=== PATIENT | female | born 1960 | race Caucasian/White ===

== ENCOUNTER 2017-02-06 04:01 | Emergency (ER) ==
[2017-02-06 04:19] VITALS: BMI 33.3
[2017-02-06] MEDS ORDERED: SODIUM CHLORIDE 1,000 ML IV STA (04:25)
[2017-02-06] MEDS ORDERED: XOPENEX 1.25 MG NEB STA (04:26)
[2017-02-06] MEDS ORDERED: DUONEB NEB STA (04:26)
--- NOTE | 2017-02-06 05:39 | CT ---
EXAM: CT of the chest without contrast. HISTORY: Cough. PROCEDURE: Contiguous axial CT images of the chest without contrast with coronal and sagittal reform ats. FINDINGS: The heart is within normal limits in size. The thoracic aorta is within normal limits in d iameter. There is an enlarged pretracheal lymph node measuring up to 1 cm in short axis. There is min imal right middle lobe atelectasis and/or pneumonia. There are degenerative changes in the spine. The re is a 3.4 cm left benign adrenal adenoma. The right adrenal gland and visualized portion of the li muna are normal in appearance. Impression: Minimal right middle lobe atelectasis and/or pneumonia. Enlarged pretracheal lymph node as described. Recommend follow-up CT in 3 months to confirm stabilit y.
[2017-02-06] MEDS ORDERED: LEVAQUIN 750 MG in PREMIX 150 ML D5W 1 BAG IV STA (05:45)
--- NOTE | 2017-02-06 05:47 | ED.PDOC ---
General ED Provider: Dr. NENITA BIRMINGHAM-ER Chief Complaint: Respiratory Complaint Stated Complaint: im sob and coughing Time Seen by Physician: 04:15 Mode of Arrival: Walk-In Information Source: Patient Exam Limitations: No limitations Primary Care Provider: NENITA BIRMINGHAM Nursing and Triage Documentation Reviewed and Agree: Yes Reviewed sepsis parameters & appropriate labs ordered?: Yes System Inflammatory Response Syndrome: Not Applicable Sepsis Protocol: For patient's 13 years and over: Temp is 96.8 and below OR 101 and greater Pulse >90 BPM Resp >20/minute Acutely Altered Mental Status Are patient's symptoms suggestive of a new infection, such as: -Pneumonia -Skin, Soft Tissue -Endocarditis -UTI -Bone, Joint Infection -Implantable Device -Acute Abdominal Infection -Wound Infection -Meningitis -Blood Stream Catheter Infection -Unknown Respiratory Complaint Exam - Respiratory Complaint/Exam Onset/Duration: 4 days Symptoms Are: Still present Timing: Constant Initial Severity: Mild Current Severity: Moderate Location: Chest Character: Reports: Non-productive cough Aggravating: Reports: URI, Passive smoke exposure Alleviating: Reports: Bronchodilators Associated Signs and Symptoms: Reports: Dyspnea, Wheezing, URI. Denies: Rapid breathing, Fever, Chills, Chest pain, Pleuritic chest pain, Hemoptysis, Dizziness, Calf pain, Calf swelling, Edema, Nasal congestion, Hoarseness, Sinus discomfort, Vomiting, Sore throat, Weight loss, Decreased oral intake, Increased thirst, Increased appetite, Increased urination History of Healthcare-Acquired Pneumonia: No Home Oxygen Use: No Recent Stress Test: No Recent Echo/LV Function: No Current Antibiotic Use: Yes Current Asthma Medication Use: No Respiratory Distress: None Inadequate Respiratory Effort: No Dysphagia Present: No Stridor Present: No JVD Present: No Accessory Muscle Use: No Retractions: Not Present Diminished Breath Sounds: No Sinus Tenderness: None Grunting Respirations: No Kussmaul Respirations: No Differential Diagnoses: Pneumonia, Bronchitis, Influenza Non-Traumatic Chest Pain Syncope: EKG Performed Review of Systems - Review Of Systems Constitutional: Reports: No symptoms Eyes: Reports: No symptoms Ears, Nose, Mouth, Throat: Reports: No symptoms Respiratory: Reports: Cough, Short of air Cardiac: Reports: No symptoms GI: Reports: No symptoms : Reports: No symptoms Musculoskeletal: Reports: No symptoms Skin: Reports: No symptoms Neurological: Reports: No symptoms Endocrine: Reports: No symptoms Hematologic/Lymphatic: Reports: No symptoms All Other Systems: Reviewed and Negative Past Medical History - Past Medical History Previously Healthy: Yes Endocrine: Reports: Unknown Cardiovascular: Reports: Unknown Respiratory: Reports: Unknown Hematological: Reports: Unknown Gastrointestinal: Reports: Other (iverticulosis) Genitourinary: Reports: Unknown Neuro/Psych: Reports: Unknown Musculoskeletal: Reports: Unknown Cancer: Reports: Unknown Last Menstrual Period: PT HAS HAD A HYSTERECTOMY - Surgical History General Surgical History: Reports: Hysterectomy (hysterectomy at 29 yrs oldd) - Family History Family History: Reports: Unknown - Social History Smoking Status: Current every day smoker, Heavy tobacco smoker Hx Substance Use: No Alcohol Screening: Occasionally Lives: With family - Immunizations Tetanus Shot up to Date: No Physical Exam - Physical Exam Appearance: Well-appearing, No pain distress, Well-nourished Eyes: MADINA, EOMI, Conjunctiva clear ENT: Ears normal, Nose normal, Oropharynx normal Neck: Supple Respiratory: Crackles, Rhonchi Cardiovascular: RRR GI/: Soft Musculoskeletal: Normal strength, ROM intact, No edema, No calf tenderness Skin: Warm, Dry, Normal color Neurological: Sensation intact, Motor intact, Reflexes intact, Cranial nerves intact, Alert, Oriented Psychiatric: Affect appropriate, Mood appropriate Interpretation - Radiology Interpretation Radiology Interpretation By: Radiologist Radiology Results: Positive Exam Interpreted: CT Scan - EKG Interpretation Time of EKG #1: 05:50 Rate: Normal Rhythm: Sinus Ectopy: None [place]: NL ST Segment: Normal Critical Care Note - Critical Care Note Total Time (mins): 0 Course - Course Hematology/Chemistry: 02/06/17 04:34 02/06/17 04:34 Orders, Labs, Meds: Lab Review 02/06/17 02/06/17 02/06/17 04:20 04:24 04:34 WBC 16.56 H RBC 5.19 Hgb 16.4 H Hct 48.3 H MCV 93.1 MCH 31.6 H MCHC 34.0 RDW Coeff of Sybil 12.4 Plt Count 324 Immature Gran % (Auto) 0.6 Neut % (Auto) 45.7 Lymph % (Auto) 42.9 [place] % (Auto) 8.6 Eos % (Auto) 2.0 Baso % (Auto) 0.2 Immature Gran # (Auto) 0.1 Neut # 7.6 H Lymph # 7.1 H Sweet [place] # 1.4 Eos # 0.3 Baso # 0.0 Puncture Site Rrad O2 Saturation 93.0 L ABG pH 7.426 ABG pCO2 38.0 ABG pO2 66.0 L ABG HCO3 25 ABG Total CO2 26 ABG Base Excess 1 Matt Test + FiO2 % 21.0 Sodium Potassium Chloride Carbon Dioxide Anion Gap BUN Creatinine Estimated GFR (MDRD) BUN/Creatinine Ratio Glucose Calcium Total Bilirubin AST ALT Alkaline Phosphatase Total Protein Albumin Globulin Albumin/Globulin Ratio Influenza A (Rapid) Negative by naat Influenza B (Rapid) Negative by naat 02/06/17 04:34 WBC RBC Hgb Hct MCV MCH MCHC RDW Coeff of Sybil Plt Count Immature Gran % (Auto) Neut % (Auto) Lymph % (Auto) [place] % (Auto) Eos % (Auto) Baso % (Auto) Immature Gran # (Auto) Neut # Lymph # [place] # Eos # Baso # Puncture Site O2 Saturation ABG pH ABG pCO2 ABG pO2 ABG HCO3 ABG Total CO2 ABG Base Excess Matt Test FiO2 % Sodium 139 Potassium 3.9 Chloride 103 Carbon Dioxide 22 Anion Gap 17.9 BUN 14 Creatinine 0.69 Estimated GFR (MDRD) 88.00 BUN/Creatinine Ratio 20.28 Glucose 158 H Calcium 9.2 Total Bilirubin < 0.3 AST 22 ALT 40 Alkaline Phosphatase 86 Total Protein 7.4 Albumin 3.8 Globulin 3.6 Albumin/Globulin Ratio 1.06 Influenza A (Rapid) Influenza B (Rapid) Orders Category Date Time Status ABG DRAW REQUEST Stat CARDIO 02/06/17 04:24 Ordered EKG-(ED ONLY) Stat CARDIO 02/06/17 04:24 Ordered NEBULIZER TREATMENT Stat CARDIO 02/06/17 04:26 Ordered ED IV/MEDIPORT/POWERPORT .ONCE EMERGENCY 02/06/17 04:25 Active ABG Stat LAB 02/06/17 04:24 Completed BLOOD CULTURE (ED ONLY) Stat LAB 02/06/17 04:34 Received CBC W/ AUTO DIFF Stat LAB 02/06/17 04:34 Completed COMPREHENSIVE METABOLIC PANEL Stat LAB 02/06/17 04:34 Completed D-DIMER Stat LAB 02/06/17 Ordered MOLECULAR GROUP A STREP Stat LAB 02/06/17 04:20 Results RAPID FLU A/B Stat LAB 02/06/17 04:20 Completed RAPID STREP SCREEN [STREP SCREEN] Stat LAB 02/06/17 04:20 Results 0.9 % Sodium Chloride [Saline Flush] MEDS 02/06/17 04:25 Ordered 1 syr IVF PRN PRN Ipratropium/Albuterol Neb [Duoneb] MEDS 02/06/17 04:26 Discontinued 1 vial NEB ONCE STA Levalbuterol HCl [Xopenex 1.25 mg] MEDS 02/06/17 04:26 Discontinued 1 vial NEB ONCE STA Levofloxacin/D5w [Levaquin] 750 mg MEDS 02/06/17 05:45 Active Premix 150 ml D5w 1 bag IV ONCE Sodium Chloride 0.9% [Sodium Chloride] 1,000 ml MEDS 02/06/17 04:25 Active IV 100 mls/hr CT CHEST W/O CONTRAST Stat RADS 02/06/17 04:25 Completed Medications Generic Name Dose Route Start Last Admin Trade Name Freq PRN Reason Stop Dose Admin Sodium Chloride 1,000 mls @ 100 mls/hr 02/06/17 04:25 02/06/17 05:22 Sodium Chloride IV 02/06/17 14:24 100 mls/hr .Q10H STA Administration Levofloxacin/Dextrose 750 mg/ 150 mls @ 100 mls/hr 02/06/17 05:45 Dextrose IV 02/06/17 07:14 ONCE STA Sodium Chloride 1 syr 02/06/17 04:25 02/06/17 05:22 Saline Flush IVF 1 syr PRN PRN Administration To flush IV Discontinued Medications Generic Name Dose Route Start Last Admin Trade Name Freq PRN Reason Stop Dose Admin Albuterol/Ipratropium 1 vial 02/06/17 04:26 02/06/17 04:45 Duoneb NEB 02/06/17 04:27 1 vial ONCE STA Administration Levalbuterol HCl 1 vial 02/06/17 04:26 02/06/17 04:33 Xopenex 1.25 Mg NEB 02/06/17 04:27 1 vial ONCE STA Administration Vital Signs: Temp Pulse Resp BP Pulse Ox 02/06/17 04:01 98.3 F 80 28 H 175/83 H 94 L Departure - Departure Time of Disposition: 05:50 Disposition: ADMITTED INPATIENT Discharge Problem: Acute respiratory failure Qualifiers: Respiratory failure complication: hypoxia Qualified Code(s): J96.01 - Acute respiratory failure with hypoxia Pneumonia Qualifiers: Pneumonia type: due to unspecified organism Laterality: unspecified laterality Lung location: unspecified part of lung Qualified Code(s): J18.9 - Pneumonia, unspecified organism Instructions: Pneumonitis (ED) Condition: Good Pt referred to PMD for follow-up: Yes Allergies/Adverse Reactions: Allergies Penicillins Adverse Reaction (Verified 02/06/17 04:14) Home Medications: Ambulatory Orders Aspirin/Calcium Carbonate/Mag [Aspirin Buffered 325 mg Tab] 325 mg PO DAILY Estradiol [Estrace] 0.5 mg PO EVERY OTHER DAY 12/08/15 Psyllium Seed [Metamucil] 1 packet PO BID 12/08/15 Disposition Discussed With: Patient, Other (employer here)
[2017-02-06] MEDS ORDERED: LEVAQUIN 150 ML IV ONE (05:49)
[2017-02-06] MEDS: DUONEB NEB SCH ×2 (06:34→11:13)
[2017-02-06 07:32] VITALS: BP 141/58; TEMP 98.1
[2017-02-06] MEDS ORDERED: PREDNISONE PO SCH (08:00)
[2017-02-06] MEDS ORDERED: ASPIRIN EC PO SCH (08:00)
[2017-02-06] MEDS ORDERED: XOPENEX 0.63 MG NEB SCH (09:00)
[2017-02-06] MEDS ORDERED: LOVENOX SUBCUT SCH (09:00)
[2017-02-06] MEDS ORDERED: LEVAQUIN 500 MG in PREMIX 100 ML D5W 1 BAG IV SCH (09:00)
[2017-02-06] MEDS ORDERED: METAMUCIL PO SCH (09:00)
[2017-02-06] MEDS ORDERED: ESTRADIOL 0.5 MG PO SCH (09:00)
[2017-02-07] MEDS ORDERED: ESTRADIOL PO SCH (09:00)
== END 2017-02-06 14:26 | disposition left against medical advice (07) ==
LOC: ED 04:01
DX: J18.9 Pneumonia, unspecified organism (principal)
CPT/HCPCS: 36415; 80053; 82803; 85025; 87040; 87502; 87651; 87880; 93005; 93010; 94640; 96361; 96365; 96372; 99284

== ENCOUNTER 2018-09-26 00:44 | Emergency (ER) ==
[2018-09-26 00:44] VITALS: BMI 31.4
[2018-09-26 00:52] VITALS: BP 147/80; TEMP 98.2
[2018-09-26] MEDS ORDERED: EPINEPHRINE 1 MG/ML AMP IM STA (00:52)
[2018-09-26] MEDS ORDERED: DECADRON 4 MG/ML SDV ONE (00:52)
[2018-09-26] MEDS ORDERED: EPINEPHRINE 1 MG/ML AMP ONE (00:52)
[2018-09-26] MEDS ORDERED: DECADRON 4 MG/ML SDV IM STA (00:52)
[2018-09-26] MEDS ORDERED: ZANTAC PO STA (00:53)
[2018-09-26] MEDS ORDERED: CLARITIN PO STA (00:53)
[2018-09-26] MEDS ORDERED: BENADRYL IM STA (00:55)
--- NOTE | 2018-09-26 00:56 | ED.PDOC ---
General ED Provider: Dr. HUBERT LIMA Chief Complaint: Allergic Reaction Stated Complaint: Patient states that she has been on antibiotics for the past few days for Diverticulitis. Today she developed hives on back, arms, stomach yesterday. and Tongue swelling thought her throat was swelling too. Time Seen by Physician: 00:50 Mode of Arrival: Walk-In Information Source: Patient Primary Care Provider: NENITA BIRMINGHAM Nursing and Triage Documentation Reviewed and Agree: Yes Does patient meet sepsis criteria?: No System Inflammatory Response Syndrome: Not Applicable Sepsis Protocol: For patient's 13 years and over: Temp is 96.8 and below OR 101 and greater Pulse >90 BPM Resp >20/minute Acutely Altered Mental Status Are patient's symptoms suggestive of a new infection, such as: -Pneumonia -Skin, Soft Tissue -Endocarditis -UTI -Bone, Joint Infection -Implantable Device -Acute Abdominal Infection -Wound Infection -Meningitis -Blood Stream Catheter Infection -Unknown Environmental Complaint Exam - Allergic Reaction Complaint/Exam Onset/Duration: just proir to arrival Symptoms Are: Still present Timing: Constant Initial Severity: Mild Current Severity: Moderate Character: Present: Swelling (of tounge ) Associated Signs and Symptoms: Reports: Throat tightening, Throat swelling Possible Reaction To: Reports: Medication Diphenhydramine Prior to Arrival: Yes (yesterday ) Epinephrine Auto Injector Prior to Arrival: No Findings: Present: Oropharyngeal edema, Angioedema, Urticarial rash Review of Systems - Review Of Systems Constitutional: Reports: Loss of appetite Eyes: Reports: No symptoms Ears, Nose, Mouth, Throat: Reports: Throat swelling (and tongue swelling ) Respiratory: Reports: No symptoms Cardiac: Reports: No symptoms GI: Reports: No symptoms : Reports: No symptoms Neurological: Reports: Anxiety All Other Systems: Reviewed and Negative Past Medical History - Past Medical History Previously Healthy: Yes Endocrine: Reports: None Cardiovascular: Reports: None Respiratory: Reports: None Hematological: Reports: None Gastrointestinal: Reports: Diverticulitis, Other (iverticulosis) Genitourinary: Reports: None Neuro/Psych: Reports: None Musculoskeletal: Reports: None Cancer: Reports: None Last Menstrual Period: at 29 y/o - Surgical History General Surgical History: Reports: Hysterectomy (hysterectomy at 29 yrs oldd) - Family History Family History: Reports: Unknown - Social History Smoking Status: Current every day smoker, Heavy tobacco smoker Hx Substance Use: No Alcohol Screening: Occasionally - Immunizations Tetanus Shot up to Date: No Physical Exam - Physical Exam Appearance: Ill-appearing, Obese Ill-appearing: Moderate Pain Distress: None Eyes: MADINA, EOMI, Conjunctiva clear ENT: Ears normal, Nose normal Neck: Supple Respiratory: Airway patent, Breath sounds clear, Breath sounds equal, Respirations nonlabored Cardiovascular: RRR, Pulses normal, No rub, No murmur GI/: Soft, Nontender, No masses, Bowel sounds normal, No Organomegaly Musculoskeletal: Normal strength, ROM intact, No edema, No calf tenderness Neurological: Alert, Oriented Psychiatric: Anxious Re-Evaluation - Re-Evaluation Time of Re-Evaluation: 01:21 Status: Improved (swelling coming down. ) Vital Signs Stable: Yes Critical Care Note - Critical Care Note Total Time (mins): 35 Course - Course Orders, Labs, Meds: Orders Category Date Time Status Dexamethasone 4 mg/ml Inj [Decadron 4 mg/ml Sdv] MEDS 09/26/18 00:52 Discontinued 8 mg .ROUTE .STK-MED ONE Dexamethasone 4 mg/ml Inj [Decadron 4 mg/ml Sdv] MEDS 09/26/18 00:52 Discontinued 8 mg IM ONCE STA Diphenhydramine Inj [Benadryl] MEDS 09/26/18 00:55 Discontinued 50 mg IM ONCE STA Epinephrine Amp [Epinephrine 1 mg/ml Amp] MEDS 09/26/18 00:52 Discontinued 0.4 mg IM ONCE STA Epinephrine Amp [Epinephrine 1 mg/ml Amp] MEDS 09/26/18 00:52 Discontinued 1 mg .ROUTE .STK-MED ONE Loratadine [Claritin] MEDS 09/26/18 00:53 Discontinued 10 mg PO ONCE STA Ondansetron [Zofran Odt] MEDS 09/26/18 02:22 Discontinued 4 mg PO ONCE STA Ranitidine HCl [Zantac] MEDS 09/26/18 00:53 Discontinued 150 mg PO ONCE STA Medications Discontinued Medications Generic Name Dose Route Start Last Admin Trade Name Freq PRN Reason Stop Dose Admin Dexamethasone Sodium Phosphate 8 mg 09/26/18 00:52 09/26/18 01:01 Decadron 4 Mg/Ml Sdv IM 09/26/18 00:53 8 mg ONCE STA Administration Diphenhydramine HCl 50 mg 09/26/18 00:55 09/26/18 01:02 Benadryl IM 09/26/18 00:56 50 mg ONCE STA Administration Epinephrine HCl 0.4 mg 09/26/18 00:52 09/26/18 01:00 Epinephrine 1 Mg/Ml Amp IM 09/26/18 00:53 0.4 mg ONCE STA Administration Loratadine 10 mg 09/26/18 00:53 09/26/18 01:02 Claritin PO 09/26/18 00:54 10 mg ONCE STA Administration Ondansetron HCl 4 mg 09/26/18 02:22 09/26/18 02:25 Zofran Odt PO 09/26/18 02:23 4 mg ONCE STA Administration Ranitidine HCl 150 mg 09/26/18 00:53 09/26/18 01:02 Zantac PO 09/26/18 00:54 150 mg ONCE STA Administration Vital Signs: Temp Pulse Resp BP Pulse Ox 09/26/18 00:48 98.2 F 84 20 147/80 H 97 Departure - Departure Time of Disposition: 01:20 Disposition: HOME SELF-CARE Discharge Problem: Angioedema Qualifiers: Encounter type: initial encounter Qualified Code(s): T78.3XXA - Angioneurotic edema, initial encounter Instructions: Angioedema (ED) Condition: Stable Pt referred to PMD for follow-up: Yes IPMP verified?: No Additional Instructions: Take Medication as prescribed Follow up with PCP in 3 days Prescriptions: Prednisone 20 mg PO DAILYWM #5 tablet Ranitidine HCl [Zantac] 150 mg PO BID #20 tablet Allergies/Adverse Reactions: Allergies azithromycin [From Zithromax] Adverse Reaction (Verified 09/26/18 00:52) Penicillins Adverse Reaction (Verified 02/06/17 04:14) Home Medications: Ambulatory Orders Aspirin/Calcium Carbonate/Mag [Aspirin Buffered 325 mg Tab] 325 mg PO DAILY Psyllium Seed [Metamucil] 1 packet PO BID 12/08/15 Fluticasone Propionate [Flonase Allergy Relief] 9.9 ml NS DAILY 05/09/17 Levofloxacin [Levaquin] 500 mg PO ONCE #10 tablet 09/19/18 Metronidazole [Flagyl] 500 mg PO Q8HR #60 tablet 09/19/18 Prednisone 20 mg PO DAILYWM #5 tablet 09/26/18 Ranitidine HCl [Zantac] 150 mg PO BID #20 tablet 09/26/18 Disposition Discussed With: Patient, Family
[2018-09-26] MEDS ORDERED: ZOFRAN ODT PO STA (02:22)
== END 2018-09-26 02:35 | disposition home or self-care (01) ==
LOC: ED 00:44
DX: T78.3XXA Angioneurotic edema, initial encounter (principal); L50.0 Allergic urticaria; F17.210 Nicotine dependence, cigarettes, uncomplicated
CPT/HCPCS: 96372; 99283